=== PATIENT | female | born 1980 | race American Indian/Alaskan Native ===

== ENCOUNTER 2017-05-03 13:58 | Emergency (ER) | payer OTHER ==
[2017-05-03 18:52] LABS: Bilirubin,Urine NEG (Negative); Blood,Urine SM (Negative); Ketones,Urine NEG (Negative); Leukocyte Esterase,Urine TR (Negative); Mucus,Urine FEW /HPF; Nitrite,Urine NEG (Negative); Protein,Urine <15 mg/dL mg/dL (Negative); Urobilinogen,Urine < 2.0 mg/dL (<2.0)
[2017-05-03] MEDS ORDERED: NACL 0.9% 1000 ML 1,000 ML IV ONE (19:08)
[2017-05-03] MEDS ORDERED: TORADOL IV ONE (19:08)
--- NOTE | 2017-05-03 19:23 | Emergency Department Report ---
ED Back Pain/Injury HPI - General Chief Complaint: Back Pain/Injury Stated Complaint: BACK PAIN/BLURRY VISION Time Seen by Provider: 05/03/17 18:08 Source: patient Limitations: No Limitations - History of Present Illness Initial Comments: This is a 36-year-old female nontoxic, well nourished in appearance, no acute signs of distress presents to the ED with c/o of low/flank back pain x1 day. Patient denies any trauma to the region. Patient denies any numbness, tingling, radiation of pain, fever, chills, headache, nausea, vomiting, chest pain, shortness of breathe, stiff neck. Patient denies any bladder or bowel instability. Patient denies any dysuria, polyuria, hematuria. Patient denies any allergies or PMH besides asthma. Patient denies history of kidney stone or back pains. Patient stated she wake up with these pains. MD Complaint: back pain -: days(s) Similar Symptoms Previously: No Place: home Radiation: none Severity: mild Severity scale (0 -10): 8 Quality: aching Consistency: constant Improves With: none Worsens With: none Associated Symptoms: denies other symptoms. denies: confusion, weakness, chest pain, numbness, difficulty walking, cough, difficulty urinating, diaphoresis, incontinence, fever/chills, constipation, headaches, abdominal pain, loss of appetite, malaise, nausea/vomiting, rash, seizure, shortness of breath, syncope - Related Data Previous Rx's Medication Instructions Recorded Last Taken Type Acetaminophen/Codeine [Tylenol #3] 1 tab PO Q6H PRN #15 tab 03/09/15 Unknown Rx Carbamide Peroxide 6.5% [Ear Wax 4 drops AU QHS #1 bottle 03/09/15 Unknown Rx Drops] methOCARBAMOL [Robaxin TAB] 500 mg PO BID #20 tab 03/09/15 Unknown Rx Sulfamethoxazole/Trimethoprim 1 each PO BID #14 tablet 05/03/17 Unknown Rx [Bactrim DS TAB] traMADol [Ultram] 50 mg PO Q6HR PRN #12 tablet 05/03/17 Unknown Rx Allergies Allergy/AdvReac Type Severity Reaction Status Date / Time No Known Allergies Allergy Verified 05/03/17 14:04 ED Review of Systems ROS: Stated complaint: BACK PAIN/BLURRY VISION Other details as noted in HPI Constitutional: denies: chills, fever Eyes: denies: eye pain, eye discharge, vision change ENT: denies: ear pain, throat pain Respiratory: denies: cough, shortness of breath, wheezing Cardiovascular: denies: chest pain, palpitations Endocrine: no symptoms reported Gastrointestinal: denies: abdominal pain, nausea, diarrhea Genitourinary: denies: urgency, dysuria, discharge Musculoskeletal: back pain. denies: joint swelling, arthralgia Skin: denies: rash, lesions Neurological: denies: headache, weakness, paresthesias Psychiatric: denies: anxiety, depression Hematological/Lymphatic: denies: easy bleeding, easy bruising ED Past Medical Hx - Past Medical History Hx Asthma: Yes - Surgical History Hx Cholecystectomy: Yes Additional Surgical History: c section - Social History Smoking Status: Current Every Day Smoker Substance Use Type: None - Medications Home Medications: Home Medications Medication Instructions Recorded Confirmed Last Taken Type Acetaminophen/Codeine [Tylenol #3] 1 tab PO Q6H PRN #15 tab 03/09/15 Unknown Rx Carbamide Peroxide 6.5% [Ear Wax 4 drops AU QHS #1 bottle 03/09/15 Unknown Rx Drops] methOCARBAMOL [Robaxin TAB] 500 mg PO BID #20 tab 03/09/15 Unknown Rx Sulfamethoxazole/Trimethoprim 1 each PO BID #14 tablet 05/03/17 Unknown Rx [Bactrim DS TAB] traMADol [Ultram] 50 mg PO Q6HR PRN #12 tablet 05/03/17 Unknown Rx ED Physical Exam - General Limitations: No Limitations General appearance: alert, in no apparent distress - Head Head exam: Present: atraumatic, normocephalic, normal inspection - Eye Eye exam: Present: normal appearance, PERRL, EOMI. Absent: scleral icterus, conjunctival injection, nystagmus, periorbital swelling, periorbital tenderness Pupils: Present: normal accommodation - ENT ENT exam: Present: normal exam, normal orophraynx, mucous membranes moist, TM's normal bilaterally, normal external ear exam - Neck Neck exam: Present: normal inspection, full ROM. Absent: tenderness, meningismus, lymphadenopathy, thyromegaly - Respiratory Respiratory exam: Present: normal lung sounds bilaterally. Absent: respiratory distress, wheezes, rales, rhonchi, stridor, chest wall tenderness, accessory muscle use, decreased breath sounds, prolonged expiratory - Cardiovascular Cardiovascular Exam: Present: regular rate, normal rhythm, normal heart sounds. Absent: irregular rhythm, systolic murmur, diastolic murmur, rubs, gallop - GI/Abdominal GI/Abdominal exam: Present: soft, normal bowel sounds. Absent: distended, tenderness, guarding, rebound, rigid, diminished bowel sounds - Rectal Rectal exam: Present: deferred - Extremities Exam Extremities exam: Present: normal inspection, full ROM, normal capillary refill. Absent: tenderness, pedal edema, joint swelling, calf tenderness - Back Exam Back exam: Present: normal inspection, full ROM, paraspinal tenderness (lumbar region). Absent: tenderness, CVA tenderness (R), CVA tenderness (L), muscle spasm, vertebral tenderness, rash noted - Expanded Back Exam Expanded Back exam: Present: normal rectal tone (as per patient). Absent: saddle anesthesia Back exam: Negative Straight Leg Raising: Left, Right - Neurological Exam Neurological exam: Present: alert, oriented X3, CN II-XII intact, normal gait, reflexes normal - Psychiatric Psychiatric exam: Present: normal affect, normal mood - Skin Skin exam: Present: warm, dry, intact, normal color. Absent: rash - Other Other exam information: No bladder or bowel instability. No joint swelling or redness. No deformity. No numbness, no tingling. No ecchymosis. No abdominal distention. ED Course Vital Signs 05/03/17 05/03/17 14:04 20:54 Temperature 99.3 F 98.1 F Pulse Rate 92 H 68 Respiratory 18 18 Rate Blood Pressure 103/32 Blood Pressure 97/56 [Left] O2 Sat by Pulse 100 99 Oximetry - Reevaluation(s) Reevaluation #1: 05/03/17 19:23 Patient is speaking in full sentences with no signs of distress noted. ED Medical Decision Making - Medical Decision Making This is a 36-year-old female that presents with bilateral renal nonobstructing calculi and UTI. Patient is stable and was examined by me. UA obtained with elevated leukocytes, WBCs and RBCs. CT without contrast of abdomen/pelvis has been obtained to rule out kidney stones and the radiologist. X-ray of lumbar spine obtained and also dictated by radiologist and normal exam. Patient was notified of results with no questions noted. Patient received 1L of normal saline and Toradol in the ED which patient stated symptoms are improving and subsiding. Patient is discharged with Ultram and Bactrim for UTI. Patient was instructed to Follow-up with a primary care doctor in 3-5 days or if symptoms worsen and continue return to emergency room as soon as possible. At time time of discharge, the patient does not seem toxic or ill in appearance. No acute signs of distress noted. Patient agrees to discharge treatment plan of care. No further questions noted by the patient. Critical care attestation.: If time is entered above; I have spent that time in minutes in the direct care of this critically ill patient, excluding procedure time. ED Disposition Clinical Impression: Renal calculi UTI (urinary tract infection) Qualifiers: Urinary tract infection type: site unspecified Hematuria presence: with hematuria Qualified Code(s): N39.0 - Urinary tract infection, site not specified Disposition: - TO HOME OR SELFCARE Is pt being admited?: No Does the pt Need Aspirin: No Condition: Stable Instructions: Sulfamethoxazole/Trimethoprim (By mouth), Tramadol (By mouth), Kidney Stones (ED) Additional Instructions: Follow-up with a primary care doctor in 3-5 days or if symptoms worsen and continue return to emergency room as soon as possible. Increase hydration as much as possible. Prescriptions: Sulfamethoxazole/Trimethoprim [Bactrim DS TAB] 1 each PO BID #14 tablet traMADol [Ultram] 50 mg PO Q6HR PRN #12 tablet PRN Reason: Pain Referrals: PRIMARY CAREMD [Primary Care Provider] - 3-5 Days GALA CORONA MD [Staff Physician] - 3-5 Days [facility] [Outside] - 3-5 Days [facility] [Outside] - 3-5 Days Forms: Work/School Release Form(ED)
--- NOTE | 2017-05-03 20:33 | Cat Scan Report ---
FINAL REPORT PROCEDURE: CT abdomen and pelvis without contrast. TECHNIQUE: Computerized axial tomography of the abdomen and pelvis was performed without intravenous contrast. This study is performed without intravascular contrast material and its sensitivity for abdominal and pelvic pathology, including neoplasms, inflammation, abscess, free fluid, thrombosis, arterial dissection and infarction, is reduced compared with a contrast enhanced study. HISTORY: Back pain, rule out kidney stone. COMPARISON: No prior studies are available for comparison. FINDINGS: The lung bases are clear. There are no pleural effusions. The heart size is normal. The liver, pancreas and spleen are grossly normal. Cholecystectomy clips are present. There is no biliary dilatation. The adrenal glands are not enlarged. Both kidneys appear normal in size and configuration. There are approximately 5 small nonobstructing right renal calculi. The largest is in the middle 3rd measuring 3.3 millimeters. There are approximately 5 small nonobstructing calculi in the left kidney. The largest is in the middle 3rd measuring 3.7 millimeters. There is no hydronephrosis. There are no definite ureteral calculi. The abdominal aorta has a normal caliber. There is no retroperitoneal adenopathy. The unopacified gastrointestinal tract is unremarkable. A normal appendix is visible. The bladder, uterus and adnexal regions are unremarkable. There are bilateral fallopian tube clips. The regional skeleton appears intact. IMPRESSION: Small bilateral nonobstructing renal calculi. Previous cholecystectomy and previous fallopian tube ligation.
[2017-05-03 20:55] VITALS: BP 97/56
--- NOTE | 2017-05-03 21:47 | XRay Report ---
FINAL REPORT EXAM: XR SPINE LUMBOSACRAL 2-3V HISTORY: back pain TECHNIQUE: Three views lumbosacral spine Comparison: CT same day with reconstructed images FINDINGS: Normal lumbar lordosis. Vertebral body heights and disc space heights are maintained. There is no spondylolisthesis. SI joints are. Previous bilateral tubal interruption clips. There are clips in the right upper quadrant. CT earlier same day demonstrated bilateral renal non obstructive calculi. IMPRESSION: Normal lumbosacral spine series.
== END 2017-05-03 22:52 | disposition home or self-care (01) ==
LOC: ED 13:58
DX: N20.0 Calculus of kidney (principal); N39.0 Urinary tract infection, site not specified; J45.909 Unspecified asthma, uncomplicated; F17.200 Nicotine dependence, unspecified, uncomplicated
CPT/HCPCS: 72100; 74176; 81001; 81025; 96361; 96374; 99284; J1885

== ENCOUNTER 2017-07-14 10:30 | Emergency (ER) | payer OTHER ==
[2017-07-14 10:38] VITALS: BP 117/74
[2017-07-14] MEDS ORDERED: MOTRIN PO ONE (12:25)
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
--- NOTE | 2017-07-14 12:58 | XRay Report ---
LUMBOSACRAL SPINE, 3 VIEWS: History: Back pain Findings: The vertebral bodies, disk spaces and posterior elements are intact. No compression deformity or malalignment. The SI joints are symmetric and unremarkable. Impression: 1. No evidence for acute injury to the lumbar spine.
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
== END 2017-07-14 13:47 | disposition home or self-care (01) ==
LOC: ED 10:30
DX: M54.5 Low back pain (principal); J45.909 Unspecified asthma, uncomplicated; F17.200 Nicotine dependence, unspecified, uncomplicated; Z90.49 Acquired absence of other specified parts of digestive tract; V43.62XA Car passenger injured in collision with other type car in traffic accident, initial encounter; Y93.89 Activity, other specified; Y92.89 Other specified places as the place of occurrence of the external cause; Y99.8 Other external cause status
CPT/HCPCS: 72100; 99283

== ENCOUNTER 2017-08-19 07:55 | Emergency (ER) | payer OTHER ==
[2017-08-19 08:09] VITALS: BP 133/76
[2017-08-19] MEDS ORDERED: NORCO 5/325 PO ONE (09:59)
--- NOTE | 2017-08-19 10:45 | Emergency Department Report ---
- General Chief complaint: Extremity Injury, Upper Stated complaint: FINGER PAIN Time Seen by Provider: 08/19/17 09:58 Source: patient Mode of arrival: Ambulatory Limitations: No Limitations - History of Present Illness Initial comments: 36-year-old [place] female comes in reporting pain in posterior right fifth digit. She reports this been going on for 3 days. She denies any past medical history currently takes no medications on a daily basis and has no known drug allergies. Patient denies any recent trauma no fever no chills no nausea no vomiting. Patient reports she is able to move all her extremities without difficulties. She feels that this happened because she cut her finger nail and nicked the side of her finger. MD complaint: abscess/boil Severity scale (0 -10): 9 Quality: aching Consistency: constant Improves with: none Worsens with: none Associated symptoms: denies other symptoms Treatments Prior to Arrival: none - Related Data Previous Rx's Medication Instructions Recorded Last Taken Type Acetaminophen/Codeine [Tylenol #3] 1 tab PO Q6H PRN #15 tab 03/09/15 Unknown Rx Carbamide Peroxide 6.5% [Ear Wax 4 drops AU QHS #1 bottle 03/09/15 Unknown Rx Drops] methOCARBAMOL [Robaxin TAB] 500 mg PO BID #20 tab 03/09/15 Unknown Rx traMADol [Ultram] 50 mg PO Q6HR PRN #12 tablet 05/03/17 Unknown Rx Cyclobenzaprine [Flexeril] 10 mg PO TID PRN #12 tablet 07/14/17 Unknown Rx Ibuprofen [Motrin 800 MG tab] 800 mg PO Q8HR PRN #30 tablet 08/19/17 Unknown Rx Sulfamethoxazole/Trimethoprim 1 each PO BID #14 tablet 08/19/17 Unknown Rx [Bactrim DS TAB] Allergies Allergy/AdvReac Type Severity Reaction Status Date / Time No Known Allergies Allergy Verified 05/03/17 14:04 Abscess Boil HPI - HPI Chief Complaint: Extremity Injury, Upper Stated Complaint: FINGER PAIN Time Seen by Provider: 08/19/17 09:58 Home Medications: Previous Rx's Medication Instructions Recorded Last Taken Type Acetaminophen/Codeine [Tylenol #3] 1 tab PO Q6H PRN #15 tab 03/09/15 Unknown Rx Carbamide Peroxide 6.5% [Ear Wax 4 drops AU QHS #1 bottle 03/09/15 Unknown Rx Drops] methOCARBAMOL [Robaxin TAB] 500 mg PO BID #20 tab 03/09/15 Unknown Rx traMADol [Ultram] 50 mg PO Q6HR PRN #12 tablet 05/03/17 Unknown Rx Cyclobenzaprine [Flexeril] 10 mg PO TID PRN #12 tablet 07/14/17 Unknown Rx Ibuprofen [Motrin 800 MG tab] 800 mg PO Q8HR PRN #30 tablet 08/19/17 Unknown Rx Sulfamethoxazole/Trimethoprim 1 each PO BID #14 tablet 08/19/17 Unknown Rx [Bactrim DS TAB] Allergies/Adverse Reactions: Allergies Allergy/AdvReac Type Severity Reaction Status Date / Time No Known Allergies Allergy Verified 05/03/17 14:04 ED Review of Systems ROS: Stated complaint: FINGER PAIN Other details as noted in HPI Constitutional: denies: chills, fever Eyes: denies: eye pain, eye discharge, vision change ENT: denies: ear pain, throat pain Respiratory: denies: cough, shortness of breath, wheezing Cardiovascular: denies: chest pain, palpitations Endocrine: no symptoms reported Gastrointestinal: denies: abdominal pain, nausea, diarrhea Genitourinary: denies: urgency, dysuria, discharge Musculoskeletal: denies: back pain, joint swelling, arthralgia Skin: other (swelling to right fifth digit with redness and pus under the skin) . denies: rash, lesions Neurological: denies: headache, weakness, paresthesias Psychiatric: denies: anxiety, depression Hematological/Lymphatic: denies: easy bleeding, easy bruising ED Past Medical Hx - Past Medical History Hx Asthma: Yes - Surgical History Hx Cholecystectomy: Yes Additional Surgical History: c section - Social History Smoking Status: Current Every Day Smoker Substance Use Type: None - Medications Home Medications: Home Medications Medication Instructions Recorded Confirmed Last Taken Type Acetaminophen/Codeine [Tylenol #3] 1 tab PO Q6H PRN #15 tab 03/09/15 Unknown Rx Carbamide Peroxide 6.5% [Ear Wax 4 drops AU QHS #1 bottle 03/09/15 Unknown Rx Drops] methOCARBAMOL [Robaxin TAB] 500 mg PO BID #20 tab 03/09/15 Unknown Rx traMADol [Ultram] 50 mg PO Q6HR PRN #12 tablet 05/03/17 Unknown Rx Cyclobenzaprine [Flexeril] 10 mg PO TID PRN #12 tablet 07/14/17 Unknown Rx Ibuprofen [Motrin 800 MG tab] 800 mg PO Q8HR PRN #30 tablet 08/19/17 Unknown Rx Sulfamethoxazole/Trimethoprim 1 each PO BID #14 tablet 08/19/17 Unknown Rx [Bactrim DS TAB] ED Physical Exam - General Limitations: No Limitations General appearance: alert, in no apparent distress - Head Head exam: Present: atraumatic, normocephalic - Eye Eye exam: Present: normal appearance - ENT ENT exam: Present: mucous membranes moist - Neck Neck exam: Present: normal inspection - Respiratory Respiratory exam: Present: normal lung sounds bilaterally. Absent: respiratory distress - Cardiovascular Cardiovascular Exam: Present: regular rate, normal rhythm. Absent: systolic murmur, diastolic murmur, rubs, gallop - GI/Abdominal GI/Abdominal exam: Present: soft, normal bowel sounds - Extremities Exam Extremities exam: Present: normal inspection - Back Exam Back exam: Present: normal inspection - Neurological Exam Neurological exam: Present: alert, oriented X3 - Psychiatric Psychiatric exam: Present: normal affect, normal mood - Skin Skin exam: Present: warm, dry, intact, normal color, other (right hand fifth digit swelling at the tip of the finger with purulent discharge beneath the skin with tenderness to touch, full range of motion). Absent: rash ED Course Vital Signs 08/19/17 08:03 Temperature 97.8 F Pulse Rate 80 Respiratory 18 Rate Blood Pressure 133/76 O2 Sat by Pulse 100 Oximetry - I & D Right Finger Type of Procedure: Simple Site: right fifth digit lateral cuticle Blade Size: 11 I & D Procedure: betadine prep, sterile drapes applied, sterile dressing applied Critical care attestation.: If time is entered above; I have spent that time in minutes in the direct care of this critically ill patient, excluding procedure time. ED Disposition Clinical Impression: Paronychia of finger of right hand Disposition: DC- TO HOME OR SELFCARE Is pt being admited?: No Does the pt Need Aspirin: No Condition: Stable Instructions: Paronychia (ED) Additional Instructions: Complete antibiotics as prescribed. Pain medication [id number] Tylenol or Motrin. Return back to the emergency room if symptoms persist or gets worse Prescriptions: Ibuprofen [Motrin 800 MG tab] 800 mg PO Q8HR PRN #30 tablet PRN Reason: Pain Sulfamethoxazole/Trimethoprim [Bactrim DS TAB] 1 each PO BID #14 tablet Referrals: PRIMARY CARE,MD [Primary Care Provider] - 3-5 Days Forms: Work/School Release Form(ED)
== END 2017-08-19 11:00 | disposition home or self-care (01) ==
LOC: ED 07:55
DX: L03.011 Cellulitis of right finger (principal); J45.909 Unspecified asthma, uncomplicated; F17.200 Nicotine dependence, unspecified, uncomplicated; Z90.49 Acquired absence of other specified parts of digestive tract

== ENCOUNTER 2018-11-10 22:51 | Emergency (ER) | payer MEDICAID ==
[2018-11-10 23:07] VITALS: BP 147/74
[2018-11-11] LABS: INR 0.99 (0.87-1.13)
[2018-11-11 00:03] LABS: Bilirubin,Urine NEG (Negative); Blood,Urine LG (Negative); Color,Urine Red (Yellow); HCG Qualitative,Urine Negative (Negative); Mucus,Urine 1+ /HPF; Urobilinogen,Urine < 2.0 mg/dL (<2.0)
[2018-11-11 00:04] LABS: RBC,Urine > 182.0 /HPF (0.0-6.0)
[2018-11-11 00:05] LABS: Basophils % (Auto) 0.3 % (0.0-1.8); Eosinophils # (Auto) 0.2 K/mm3 (0.0-0.4); Eosinophils % (Auto) 1.6 % (0.0-4.3); Hematocrit 30.6 % (30.3-42.9); Hemoglobin 9.7 gm/dl (10.1-14.3); Lymphocytes % (Auto) 28.5 % (13.4-35.0); Mean Corpuscular HGB Conc 32 % (30-34); Mean Corpuscular Volume 71 fl (79-97); Monocytes # (Auto) 0.8 K/mm3 (0.0-0.8); Monocytes % (Auto) 7.6 % (0.0-7.3); Platelet Count 438 K/mm3 (140-440); Red Blood Count 4.32 M/mm3 (3.65-5.03); Red Cell Distribution Width 18.2 % (13.2-15.2)
[2018-11-11] MEDS ORDERED: TORADOL IM ONE (01:08)
--- NOTE | 2018-11-11 02:26 | Emergency Department Report ---
ED General Adult HPI - General Chief complaint: Abdominal Pain Stated complaint: ABDOMINAL PAIN/CRAMPING Time Seen by Provider: 11/11/18 01:03 Source: patient Mode of arrival: Ambulatory Limitations: No Limitations - History of Present Illness Initial comments: Patient is a 38-year-old female who is presenting with suprapubic and lower back crampiness. This been present for the last 2 days. Patient denies any nausea vomiting diarrhea or vaginal bleeding but she does have some mild dysuria. The patient states pain is 6 out of 10 in severity. Patient also states that her left lower extremity is hurting over the last several days as well. Has been no swelling or redness present. Patient has a history of using a walker secondary to an injury she sustained to the right ankle. Patient states for the last several days her left lower extremity C in the posterior calf has been aching and throbbing. There's been no trauma that she can remember. Severity scale (0 -10): 7 - Related Data Previous Rx's Medication Instructions Recorded Last Taken Type Acetaminophen/Codeine [Tylenol #3] 1 tab PO Q6H PRN #15 tab 03/09/15 Unknown Rx Carbamide Peroxide 6.5% [Ear Wax 4 drops AU QHS #1 bottle 03/09/15 Unknown Rx Drops] methOCARBAMOL [Robaxin TAB] 500 mg PO BID #20 tab 03/09/15 Unknown Rx traMADol [Ultram] 50 mg PO Q6HR PRN #12 tablet 05/03/17 Unknown Rx Cyclobenzaprine [Flexeril] 10 mg PO TID PRN #12 tablet 07/14/17 Unknown Rx Ibuprofen [Motrin 800 MG tab] 800 mg PO Q8HR PRN #30 tablet 08/19/17 Unknown Rx Sulfamethoxazole/Trimethoprim 1 each PO BID #14 tablet 08/19/17 Unknown Rx [Bactrim DS TAB] Ibuprofen [Motrin 600 MG tab] 600 mg PO Q8H PRN #20 tablet 11/11/18 Unknown Rx Nitrofurantoin [place]/M-Cryst 100 mg PO Q12HR #14 capsule 11/11/18 Unknown Rx [Macrobid CAP] Phenazopyridine [Pyridium] 200 mg PO BID #6 tab 11/11/18 Unknown Rx traMADol [Ultram] 50 mg PO Q6HR PRN #12 tablet 11/11/18 Unknown Rx Allergies Allergy/AdvReac Type Severity Reaction Status Date / Time No Known Allergies Allergy Verified 05/03/17 14:04 ED Review of Systems ROS: Stated complaint: ABDOMINAL PAIN/CRAMPING Other details as noted in HPI Comment: All other systems reviewed and negative ED Past Medical Hx - Past Medical History Hx Asthma: Yes - Surgical History Hx Cholecystectomy: Yes Additional Surgical History: c section - Social History Smoking Status: Unknown if ever smoked Substance Use Type: None - Medications Home Medications: Home Medications Medication Instructions Recorded Confirmed Last Taken Type Acetaminophen/Codeine [Tylenol #3] 1 tab PO Q6H PRN #15 tab 03/09/15 Unknown Rx Carbamide Peroxide 6.5% [Ear Wax 4 drops AU QHS #1 bottle 03/09/15 Unknown Rx Drops] methOCARBAMOL [Robaxin TAB] 500 mg PO BID #20 tab 03/09/15 Unknown Rx traMADol [Ultram] 50 mg PO Q6HR PRN #12 tablet 05/03/17 Unknown Rx Cyclobenzaprine [Flexeril] 10 mg PO TID PRN #12 tablet 07/14/17 Unknown Rx Ibuprofen [Motrin 800 MG tab] 800 mg PO Q8HR PRN #30 tablet 08/19/17 Unknown Rx Sulfamethoxazole/Trimethoprim 1 each PO BID #14 tablet 08/19/17 Unknown Rx [Bactrim DS TAB] Ibuprofen [Motrin 600 MG tab] 600 mg PO Q8H PRN #20 tablet 11/11/18 Unknown Rx Nitrofurantoin [place]/M-Cryst 100 mg PO Q12HR #14 capsule 11/11/18 Unknown Rx [Macrobid CAP] Phenazopyridine [Pyridium] 200 mg PO BID #6 tab 11/11/18 Unknown Rx traMADol [Ultram] 50 mg PO Q6HR PRN #12 tablet 11/11/18 Unknown Rx ED Physical Exam - General Limitations: No Limitations General appearance: alert, in no apparent distress - Head Head exam: Present: atraumatic, normocephalic - Eye Eye exam: Present: normal appearance - ENT ENT exam: Present: mucous membranes moist - Neck Neck exam: Present: normal inspection - Respiratory Respiratory exam: Present: normal lung sounds bilaterally. Absent: respiratory distress, wheezes, rales, rhonchi - Cardiovascular Cardiovascular Exam: Present: regular rate, normal rhythm. Absent: systolic murmur, diastolic murmur, rubs, gallop - GI/Abdominal GI/Abdominal exam: Present: soft, tenderness (suprapubic), normal bowel sounds. Absent: distended, guarding, rebound, rigid - Extremities Exam Extremities exam: Present: normal inspection - Back Exam Back exam: Present: normal inspection - Neurological Exam Neurological exam: Present: alert, oriented X3 - Psychiatric Psychiatric exam: Present: normal affect, normal mood - Skin Skin exam: Present: warm, dry, intact, normal color. Absent: rash ED Course Vital Signs 11/10/18 11/10/18 11/11/18 23:05 23:10 01:17 Temperature 98.8 F 98.4 F Pulse Rate 85 68 Respiratory 16 16 16 Rate Blood Pressure 147/74 O2 Sat by Pulse 99 100 Oximetry ED Medical Decision Making - Lab Data Result diagrams: 11/10/18 23:25 Lab Results 11/10/18 11/10/18 11/10/18 Range/Units 23:25 23:25 23:30 WBC 10.4 (4.5-11.0) K/mm3 RBC 4.32 (3.65-5.03) M/mm3 Hgb 9.7 L (10.1-14.3) gm/dl Hct 30.6 (30.3-42.9) % MCV 71 L (79-97) fl MCH 23 L (28-32) pg MCHC 32 (30-34) % RDW 18.2 H (13.2-15.2) % Plt Count 438 (140-440) K/mm3 Lymph % (Auto) 28.5 (13.4-35.0) % [place] % (Auto) 7.6 H (0.0-7.3) % Eos % (Auto) 1.6 (0.0-4.3) % Baso % (Auto) 0.3 (0.0-1.8) % Lymph # 3.0 (1.2-5.4) K/mm3 [place] # 0.8 (0.0-0.8) K/mm3 Eos # 0.2 (0.0-0.4) K/mm3 Baso # 0.0 (0.0-0.1) K/mm3 Seg Neutrophils % 62.0 (40.0-70.0) % Seg Neutrophils # 6.4 (1.8-7.7) K/mm3 PT 12.8 (12.2-14.9) Sec. INR 0.99 (0.87-1.13) D-Dimer (0-234) ng/mlDDU Urine Color Red (Yellow) Urine Turbidity Slightly-cloudy (Clear) Urine pH 6.0 (5.0-7.0) Ur Specific [place] 1.020 (1.003-1.030) Urine Protein 30 mg/dl (Negative) mg/dL Urine Glucose (UA) Neg (Negative) mg/dL Urine Ketones Neg (Negative) mg/dL Urine Blood Lg (Negative) Urine Nitrite Neg (Negative) Urine Bilirubin Neg (Negative) Urine Urobilinogen < 2.0 (<2.0) mg/dL Ur Leukocyte Esterase Sm (Negative) Urine WBC (Auto) 87.0 H (0.0-6.0) /HPF Urine RBC (Auto) > 182.0 (0.0-6.0) /HPF U Epithel Cells (Auto) 4.0 (0-13.0) /HPF Urine Mucus 1+ /HPF Urine Yeast (Budding) 2+ /HPF Urine HCG, Qual Negative (Negative) 11/11/18 Range/Units 01:26 WBC (4.5-11.0) K/mm3 RBC (3.65-5.03) M/mm3 Hgb (10.1-14.3) gm/dl Hct (30.3-42.9) % MCV (79-97) fl MCH (28-32) pg MCHC (30-34) % RDW (13.2-15.2) % Plt Count (140-440) K/mm3 Lymph % (Auto) (13.4-35.0) % Catron % (Auto) (0.0-7.3) % Eos % (Auto) (0.0-4.3) % Baso % (Auto) (0.0-1.8) % Lymph # (1.2-5.4) K/mm3 [place] # (0.0-0.8) K/mm3 Eos # (0.0-0.4) K/mm3 Baso # (0.0-0.1) K/mm3 Seg Neutrophils % (40.0-70.0) % Seg Neutrophils # (1.8-7.7) K/mm3 PT (12.2-14.9) Sec. INR (0.87-1.13) D-Dimer 373.86 H (0-234) ng/mlDDU Urine Color (Yellow) Urine Turbidity (Clear) Urine pH (5.0-7.0) Ur Specific [place] (1.003-1.030) Urine Protein (Negative) mg/dL Urine Glucose (UA) (Negative) mg/dL Urine Ketones (Negative) mg/dL Urine Blood (Negative) Urine Nitrite (Negative) Urine Bilirubin (Negative) Urine Urobilinogen (<2.0) mg/dL Ur Leukocyte Esterase (Negative) Urine WBC (Auto) (0.0-6.0) /HPF Urine RBC (Auto) (0.0-6.0) /HPF U Epithel Cells (Auto) (0-13.0) /HPF Urine Mucus /HPF Urine Yeast (Budding) /HPF Urine HCG, Qual (Negative) - Medical Decision Making Patient does show evidence of urinary tract infection. Patient be started on antibiotics. We are unable to do an ultrasound of the patient's lower extremity at this time. Her d-dimer was slightly elevated. Patient given a orders for outpatient ultrasound and she can return to the outpatient radiology. Critical care attestation.: If time is entered above; I have spent that time in minutes in the direct care of this critically ill patient, excluding procedure time. ED Disposition Clinical Impression: Acute cystitis Qualifiers: Hematuria presence: without hematuria Qualified Code(s): N30.00 - Acute cystitis without hematuria Leg pain Qualifiers: Laterality: left Qualified Code(s): M79.605 - Pain in left leg Disposition: DC-01 TO HOME OR SELFCARE Is pt being admited?: No Does the pt Need Aspirin: No Condition: Stable Instructions: Urinary Tract Infection in Women (ED) Referrals: ERROL ALEJO MD [Primary Care Provider] - 3-5 Days Time of Disposition: 02:26
== END 2018-11-11 02:40 | disposition home or self-care (01) ==
LOC: ED 22:51
DX: N30.00 Acute cystitis without hematuria (principal); M79.605 Pain in left leg; J45.909 Unspecified asthma, uncomplicated; Z79.899 Other long term (current) drug therapy; Z90.49 Acquired absence of other specified parts of digestive tract
CPT/HCPCS: 36415; 81001; 81025; 85025; 85379; 85610; 87086; 96372; 99283; J1885

== ENCOUNTER 2019-02-11 16:11 | Emergency (ER) | payer MEDICAID ==
[2019-02-11 16:26] VITALS: BP 117/89
--- NOTE | 2019-02-11 16:48 | Emergency Department Report ---
Blank Doc - Documentation Documentation: 38-year-old female that presents with right ankle pain. Unsure of any injuries. This initial assessment/diagnostic orders/clinical plan/treatment(s) is/are subject to change based on patient's health status, clinical progression and re- assessment by fellow clinical providers in the ED. Further treatment and workup at subsequent clinical providers discretion. Patient/guardians urged not to elope from the ED as their condition may be serious if not clinically assessed and managed. Initial orders include: 1- Patient sent to [facility] for further evaluation and treatment 2- xrays
--- NOTE | 2019-02-11 17:31 | XRay Report ---
RIGHT ANKLE 3 VIEWS INDICATION / CLINICAL INFORMATION: ankle pain. COMPARISON: None available. FINDINGS: Distal fibular plate, screws and 2 syndesmosis screws traverse the super syndesmotic distal fibular f racture in expected position which is healed radiographically with osseous continuity. There is a pro bable small OCD lesion within the medial talar dome with flecks of calcium seen within the region of the deltoid ligament likely from remote ligamentous injury. No acute fracture or dislocation is seen within the right ankle. Signer Name: Mono Cuevas MD Signed: 02/11/2019 5:27 PM Workstation Name: [id number]
[2019-02-11] MEDS ORDERED: traMADol 50 MG TAB PO ONE (18:18)
[2019-02-11] MEDS ORDERED: KETOROLAC 60 MG/2 ML INJ IM ONE (18:18)
--- NOTE | 2019-02-11 18:47 | Emergency Department Report ---
ED Lower Extremity HPI - General Chief Complaint: Extremity Injury, Lower Stated Complaint: RT ANKLE PAIN Time Seen by Provider: 02/11/19 16:46 Source: EMS Mode of arrival: Wheelchair Limitations: No Limitations - History of Present Illness Initial Comments: 38-year-old female with a past medical history right ankle surgery November 2017 presents to the hospital complaining of right ankle pain that started yesterday. No recent trauma reported. Patient complains of ankle swelling and pain radiating up to right lower leg. Pain is moderate to severe, constant, worse with palpation and movement. No alleviating factors. Patient took Tylenol without relief. Patient having trouble ambulating due to pain. No recent travel or bcp use. - Related Data Previous Rx's Medication Instructions Recorded Last Taken Type Acetaminophen/Codeine [Tylenol #3] 1 tab PO Q6H PRN #15 tab 03/09/15 Unknown Rx Carbamide Peroxide 6.5% [Ear Wax 4 drops AU QHS #1 bottle 03/09/15 Unknown Rx Drops] methOCARBAMOL [Robaxin TAB] 500 mg PO BID #20 tab 03/09/15 Unknown Rx Cyclobenzaprine [Flexeril] 10 mg PO TID PRN #12 tablet 07/14/17 Unknown Rx Sulfamethoxazole/Trimethoprim 1 each PO BID #14 tablet 08/19/17 Unknown Rx [Bactrim DS TAB] Ibuprofen [Motrin 600 MG tab] 600 mg PO Q8H PRN #20 tablet 11/11/18 Unknown Rx Nitrofurantoin [place]/M-Cryst 100 mg PO Q12HR #14 capsule 11/11/18 Unknown Rx [Macrobid CAP] Phenazopyridine [Pyridium] 200 mg PO BID #6 tab 11/11/18 Unknown Rx traMADol [Ultram] 50 mg PO Q6HR PRN #12 tablet 11/11/18 Unknown Rx Ibuprofen [Motrin 800 MG tab] 800 mg PO Q8HR PRN #30 tablet 02/11/19 Unknown Rx traMADol [Ultram 50 MG tab] 50 mg PO Q6HR PRN #20 tablet 02/11/19 Unknown Rx Allergies Allergy/AdvReac Type Severity Reaction Status Date / Time No Known Allergies Allergy Verified 05/03/17 14:04 ED Review of Systems ROS: Stated complaint: RT ANKLE PAIN Other details as noted in HPI Comment: All other systems reviewed and negative ED Past Medical Hx - Past Medical History Hx Hypertension: Yes Hx Asthma: Yes - Surgical History Hx Cholecystectomy: Yes Additional Surgical History: c section. rt ankle surgery - Social History Smoking Status: Current Some Day Smoker Substance Use Type: None - Medications Home Medications: Home Medications Medication Instructions Recorded Confirmed Last Taken Type Acetaminophen/Codeine [Tylenol #3] 1 tab PO Q6H PRN #15 tab 03/09/15 Unknown Rx Carbamide Peroxide 6.5% [Ear Wax 4 drops AU QHS #1 bottle 03/09/15 Unknown Rx Drops] methOCARBAMOL [Robaxin TAB] 500 mg PO BID #20 tab 03/09/15 Unknown Rx Cyclobenzaprine [Flexeril] 10 mg PO TID PRN #12 tablet 07/14/17 Unknown Rx Sulfamethoxazole/Trimethoprim 1 each PO BID #14 tablet 08/19/17 Unknown Rx [Bactrim DS TAB] Ibuprofen [Motrin 600 MG tab] 600 mg PO Q8H PRN #20 tablet 11/11/18 Unknown Rx Nitrofurantoin [place]/M-Cryst 100 mg PO Q12HR #14 capsule 11/11/18 Unknown Rx [Macrobid CAP] Phenazopyridine [Pyridium] 200 mg PO BID #6 tab 11/11/18 Unknown Rx traMADol [Ultram] 50 mg PO Q6HR PRN #12 tablet 11/11/18 Unknown Rx Ibuprofen [Motrin 800 MG tab] 800 mg PO Q8HR PRN #30 tablet 02/11/19 Unknown Rx traMADol [Ultram 50 MG tab] 50 mg PO Q6HR PRN #20 tablet 02/11/19 Unknown Rx ED Physical Exam - General Limitations: No Limitations - Other Other exam information: Gen.: No acute distress Head: Atraumatic Eyes: Normal appearance ENT: Moist mucous membranes Neck: Normal appearance, no posterior midline tenderness, no meningismus Chest: Clear to auscultation bilaterally Cardiovascular: Regular rate and rhythm Abdomen: Normal appearance, soft, nontender, no rebound or guarding, normal bowel sounds Back: Normal appearance, nontender Extremity: Right ankle surgical changes noted. Minimal ankle swelling. Tenderness at ankle bilaterally extending upward to cath. Delayed asymmetry noted. 2+ DP pulses. Patient able to flex and extend although with pain. Neuro: Alert, clear speech, no focal motor or sensory deficit Psychiatric: Appropriate Skin: No rash ED Course Vital Signs 02/11/19 16:20 Temperature 97.9 F Pulse Rate 81 Respiratory 18 Rate Blood Pressure 117/89 O2 Sat by Pulse 99 Oximetry ED Lower Extremity MDM - Radiology Data Radiology results: report reviewed IGHT ANKLE 3 VIEWS INDICATION / CLINICAL INFORMATION: ankle pain. COMPARISON: None available. FINDINGS: Distal fibular plate, screws and 2 syndesmosis screws traverse the super syndesmotic distal fibular fracture in expected position which is healed radiographically with osseous continuity. There is a probable small OCD lesion within the medial talar dome with flecks of calcium seen within the region of the deltoid ligament likely from remote ligamentous injury. No acute fracture or dislocation is seen within the right ankle. - Medical Decision Making Patient has right ankle swelling and pain extending up to calf. No recent injury reported. X-ray review. Patient placed in ankle stirrup, provided crutches, and pain medication. Outpatient Doppler ordered for a.m. Outpatient orthopedics follow-up recommended. - Differential Diagnosis dvt, arthritis, fracture, sprain Critical Care Time: No Critical care attestation.: If time is entered above; I have spent that time in minutes in the direct care of this critically ill patient, excluding procedure time. ED Disposition Clinical Impression: Right ankle pain, History of fracture of right ankle Disposition: DC-01 TO HOME OR SELFCARE Is pt being admited?: No Does the pt Need Aspirin: No Condition: Stable Instructions: Ankle Sprain (ED) Additional Instructions: Take the medication as prescribed. Follow-up with your doctor or with the doctor/clinic provided. Return if symptoms worsen as indicated by your discharge instructions. An outpatient ultrasound of the right leg has been ordered. Please return as instructed. Prescriptions: Ibuprofen [Motrin 800 MG tab] 800 mg PO Q8HR PRN #30 tablet PRN Reason: Pain traMADol [Ultram 50 MG tab] 50 mg PO Q6HR PRN #20 tablet PRN Reason: Pain Referrals: PRIMARY CARE, [Primary Care Provider] - 3-5 Days PACO CAMPOS MD [Staff Physician] - 3-5 Days (orthopedic doctor ) Time of Disposition: 18:47
== END 2019-02-11 20:00 | disposition home or self-care (01) ==
LOC: ED 16:11
DX: M25.571 Pain in right ankle and joints of right foot (principal); I10 Essential (primary) hypertension; J45.909 Unspecified asthma, uncomplicated; F17.200 Nicotine dependence, unspecified, uncomplicated; Z90.49 Acquired absence of other specified parts of digestive tract; Z79.899 Other long term (current) drug therapy
CPT/HCPCS: 73610; 96372; 99283; J1885